=== PATIENT | male | born 1950 | race Caucasian/White ===

== ENCOUNTER 2019-04-07 22:40 | Inpatient (IN) | payer MEDICARE, MEDICAID ==
[~2019-04-07] VITALS: Ht 172.7 cm
[2019-04-07 23:27] LABS: BASOPHILS % 0.6 % (0.0-2.0); EOSINOPHILS % 1.6 % (0.0-5.0); HEMATOCRIT. 39.8 % (42.0-52.0); HEMOGLOBIN. 13.5 g/dL (14.0-18.0); LYMPHOCYTES % 12.8 % (20.0-50.0); MEAN CORPUSCULAR HEMOGLOBIN 29.4 pg (28.0-32.0); MEAN CORPUSCULAR VOLUME 86.4 fL (80.0-94.0); MEAN PLATELET VOLUME 10.1 fl (7.4-10.4); MONOCYTES % 7.3 % (2.0-8.0); NEUTROPHILS % 77.7 % (40.0-76.0); PLATELET 131 x1000/uL (130-400); RED BLOOD CELL COUNT 4.61 mill/uL (4.7-6.1); RED CELL DISTRIBUTION WIDTH 14.2 % (11.6-14.6)
[2019-04-07 23:29] LABS: CHLORIDE 112 mEq/L (98-107)
[2019-04-07 23:30] LABS: PARTIAL THROMBOPLASTIN TIME 26.7 sec (23.4-31.0); PROTHROMBIN TIME 10.3 sec (9.6-11.0)
[2019-04-08] VITALS (13 sets, daily range): BP systolic 90–142; BP diastolic 46–86
[2019-04-08 01:58] LABS: PHOSPHORUS 2.4 mg/dL (2.5-4.9)
[2019-04-08] MEDS ORDERED: ENOXAPARIN 100MG/ML SYR SUBCUT SCH ×2 (02:00→21:00)
[2019-04-08] MEDS ORDERED: ACETAMINOPHEN 325MG TABLET PO PRN (03:15)
[2019-04-08] MEDS ORDERED: ONDANSETRON HCL 4MG/2ML INJ IV PRN (03:15)
[2019-04-08] MEDS ORDERED: MAGNESIUM/ALUMINUM HYDROXIDE/SIMETHICONE 30ML UDC PO PRN (03:15)
[2019-04-08] MEDS ORDERED: POTASSIUM CHLORIDE 20MEQ TABLET SR PO SCH (03:15)
[2019-04-08] MEDS ORDERED: DIPHENHYDRAMINE 50MG/ML VIAL IV PRN (03:15)
[2019-04-08] MEDS ORDERED: CLONIDINE 0.1MG TABLET PO PRN (03:15)
[2019-04-08] MEDS ORDERED: ATOR20TA65 PO (05:30)
[2019-04-08] MEDS ORDERED: MAGN400C PO (05:30)
[2019-04-08] MEDS ORDERED: COR12 PO (05:30)
[2019-04-08] MEDS ORDERED: KDUR10 PO (05:30)
[2019-04-08] MEDS ORDERED: FURO20TA4 PO (05:30)
[2019-04-08] MEDS ORDERED: AMLO10TA4 PO (05:30)
[2019-04-08] MEDS ORDERED: HYDR25TA PO (05:37)
[2019-04-08] MEDS ORDERED: POTASSIUM PHOS,M-BASIC-D-BASIC 20 MMOL in DEXT 5% WATER 243.3333 ML IV SCH (06:00)
[2019-04-08] MEDS ORDERED: MAGNESIUM 4 G PREMIX 100 ML IV SCH (06:00)
[2019-04-08] MEDS: SODIUM CHLORIDE 0.9% INJ 3ML FLUSH IVF SCH ×3 (06:32→21:36)
[2019-04-08] MEDS ORDERED: CARVEDILOL 12.5MG TABLET PO SCH (09:00)
[2019-04-08] MEDS: POTASSIUM CHLORIDE 20MEQ TABLET SR PO SCH (09:02)
[2019-04-08] MEDS: AMLODIPINE 10MG TABLET PO SCH (09:02)
[2019-04-08] MEDS: ASPIRIN 81MG TABLET PO SCH (14:12)
[2019-04-08 19:12] LABS: CHLORIDE 110 mEq/L (98-107)
[2019-04-08 19:18] LABS: PHOSPHORUS 3.9 mg/dL (2.5-4.9)
[2019-04-08] MEDS: ENOXAPARIN 30MG/0.3ML SYR SUBCUT SCH (21:32)
[2019-04-08] MEDS: CARVEDILOL 12.5MG TABLET PO SCH (21:34)
[2019-04-09] VITALS (13 sets, daily range): BP systolic 99–143; BP diastolic 61–83
[2019-04-09 06:46] LABS: CHLORIDE 110 mEq/L (98-107)
[2019-04-09 06:52] LABS: PHOSPHORUS 3.6 mg/dL (2.5-4.9)
[2019-04-09] MEDS: SODIUM CHLORIDE 0.9% INJ 3ML FLUSH IVF SCH ×2 (06:57→16:55)
[2019-04-09 06:59] LABS: BASOPHILS % 0.8 % (0.0-2.0); EOSINOPHILS % 2.1 % (0.0-5.0); HEMATOCRIT. 40.3 % (42.0-52.0); HEMOGLOBIN. 13.6 g/dL (14.0-18.0); LYMPHOCYTES % 28.4 % (20.0-50.0); MEAN CORPUSCULAR HEMOGLOBIN 29.2 pg (28.0-32.0); MEAN CORPUSCULAR VOLUME 86.6 fL (80.0-94.0); MEAN PLATELET VOLUME 10.4 fl (7.4-10.4); NEUTROPHILS % 61.7 % (40.0-76.0); PLATELET 138 x1000/uL (130-400); RED BLOOD CELL COUNT 4.65 mill/uL (4.7-6.1); RED CELL DISTRIBUTION WIDTH 14.2 % (11.6-14.6)
[2019-04-09] MEDS: CARVEDILOL 12.5MG TABLET PO SCH (09:00)
[2019-04-09] MEDS: POTASSIUM CHLORIDE 20MEQ TABLET SR PO SCH (10:17)
[2019-04-09] MEDS: ASPIRIN 81MG TABLET PO SCH (10:17)
[2019-04-09] MEDS: AMLODIPINE 10MG TABLET PO SCH (10:17)
[2019-04-09] MEDS: ENOXAPARIN 30MG/0.3ML SYR SUBCUT SCH (10:17)
[2019-04-09] MEDS ORDERED: MAGNESIUM 4 G PREMIX 100 ML IV NR (14:00)
== END 2019-04-09 19:03 | disposition home or self-care (01) | DRG 206 ==
LOC: ER 22:40 → 3WST 23:55 → EDBEDREQTM 23:57 → EDBEDREQ 23:57 → EDBEDREQSVC 23:57 → ENRESERV 04-08 03:22
PROVIDERS: ADMIT Internal Medicine; ATTEND Internal Medicine
DX: M94.0 Chondrocostal junction syndrome [Tietze] (principal); I48.92 Unspecified atrial flutter; R00.1 Bradycardia, unspecified; T44.7X5A Adverse effect of beta-adrenoreceptor antagonists, initial encounter; E78.5 Hyperlipidemia, unspecified; E83.39 Other disorders of phosphorus metabolism; E83.42 Hypomagnesemia; E87.6 Hypokalemia; I11.0 Hypertensive heart disease with heart failure; I48.0 Paroxysmal atrial fibrillation; I50.9 Heart failure, unspecified; Z82.49 Family history of ischemic heart disease and other diseases of the circulatory system; Z88.0 Allergy status to penicillin; Z79.899 Other long term (current) drug therapy
CPT/HCPCS: 36415; 71045; 80048; 80053; 83735; 83880; 84100; 84484; 85025; 93005; 93306; 96365; 99285; J1650; J3475; J3490; J7060